=== PATIENT | female | born 1985 | race Two or more races ===

== ENCOUNTER 2016-07-31 03:32 | Inpatient (IN) | payer MEDICAID ==
[~2016-07-31] VITALS: Ht 157.5 cm; Wt 76.1 kg
[2016-07-31 03:47] VITALS: Ht 157.5 cm; Wt 76.1 kg
[2016-07-31 03:48] VITALS: BP 112/63; PULSE 68; RESP 18
[2016-07-31] MEDS ORDERED: LACTATED RINGER'S 1,000 ML IV SCH (03:58)
[2016-07-31] MEDS ORDERED: AMPICILLIN 2 GM/NS (PMX) 100 ML IV ONE (04:00)
[2016-07-31] MEDS ORDERED: BUTORPHANOL 2 MG INJ IV PRN ×2 (04:00)
[2016-07-31] MEDS ORDERED: METHYLERGONOVINE 0.2 MG INJ IM PRN (04:00)
[2016-07-31] MEDS ORDERED: CARBOPROST 250 MCG INJ IM PRN (04:00)
[2016-07-31] MEDS ORDERED: IBUPROFEN 600 MG TAB PO PRN (04:00)
[2016-07-31] MEDS ORDERED: OXYTOCIN 30 UNITS/LR 500 ML IV SCH ×2 (04:00)
[2016-07-31] MEDS ORDERED: MISOPROSTOL 200 MCG TAB PR PRN (04:00)
[2016-07-31] MEDS ORDERED: ACETAMINOPHEN/CODEINE #3 TAB PO PRN ×3 (04:00→10:30)
[2016-07-31] MEDS ORDERED: OXYTOCIN 30 UNITS/LR 500 ML IV PRN (04:00)
[2016-07-31] MEDS ORDERED: PREN-93 PO (04:04)
[2016-07-31] MEDS ORDERED: LACTATED RINGER'S 1,000 ML IV PRN (04:07)
--- NOTE | 2016-07-31 04:46 | HP ---
Date/Time of Note Date/Time of Note DATE: 07/31/16 TIME: 04:39 OB - History Hx of Present Free Text/Dictation 31 yo P1 @ 38+ wks, presents in active labor, 4cm. +Ctx, no VB, no LOF Chief Complaint: ctx Last Menstrual Period: Oct 13, 2015 Estimated Due Date: Aug 10, 2016 : 2 Para: 1 Care: Good Care Obstetrical Complications: None, Other Medical Complications: None Other Concerns: Level II sono showed marginal insertion of umbilical cord near edge of placenta Past Family/Social History * Past Medical, Surgical, Family and Obstetric Histories reviewed from chart. Blood Type: O+ Rubella: immune RPR/VDRL: Negative GBS Status: Negative HBsAG: Negative OB Admission Exam Vital Signs Vital Signs Vital Signs Date Time Temp Pulse Resp B/P Pulse Ox O2 Delivery O2 Flow Rate FiO2 07/31/16 03:48 98.9 68 18 112/63 Room Air Physical Exam HEENT: WNL Abdomen: WNL Cervical Dilatation: 4cm Effacement: 75% Station: -3 Membranes: Intact Heart Rate: 130's Accelerations: Accelerations Present Decelerations: No Decelerations Varibility: Moderate Contractions on Admission: < 5 Minutes Apart Intensity: Moderate OB Assessment/Plan Other Assessment: 31 yo P1 @ 38+ wks, in active labor - reassuring status - gbs neg Plan: Expectant Management Other plan: Admit to labor and delivery Anticipate ALLISON ASTUDILLO MD Jul 31, 2016 04:45
[2016-07-31 06:04] LABS: ADD SCAN DIFF NO
[2016-07-31 06:10] LABS: BASOPHILS % 0.2 % (0.0-2.0); EOSINOPHILS # 0.1 10^3/ul (0.0-0.5); EOSINOPHILS % 0.7 % (0.0-7.0); HEMATOCRIT 41.4 % (37.0-47.0); HEMOGLOBIN 13.6 g/dl (12.0-16.0); LYMPHOCYTES # 1.3 10^3/ul (0.8-2.9); LYMPHOCYTES % 15.3 % (15.0-51.0); MEAN CORPUSCULAR HEMOGLOBIN 29.4 pg (29.0-33.0); MEAN CORPUSCULAR HGB CONC 32.9 g/dl (32.0-37.0); MEAN CORPUSCULAR VOLUME 89.4 fl (82.0-101.0); MEAN PLATELET VOLUME 12.7 fl (7.4-10.4); MONOCYTE # 0.5 10^3/ul (0.3-0.9); MONOCYTES % 5.4 % (0.0-11.0); NEUTROPHIL # 6.5 10^3/ul (1.6-7.5); NEUTROPHILS % 77.9 % (39.0-77.0); PLATELET COUNT 172 10^3/UL (140-415); RED BLOOD COUNT 4.63 10^6/ul (4.20-5.40); RED CELL DISTRIBUTION WIDTH 14.6 % (11.5-14.5); WHITE BLOOD COUNT 8.3 10^3/ul (4.8-10.8)
[2016-07-31 06:33] LABS: ALANINE AMINOTRANSFERASE 39 IU/L (13-69); ALBUMIN 3.7 g/dl (3.3-4.9); ALBUMIN/GLOBULIN RATIO 1.12; ALKALINE PHOSPHATASE 213 IU/L (42-121); ANION GAP 13 (8-16); ASPARTATE AMINO TRANSFERASE 28 IU/L (15-46); BILIRUBIN,INDIRECT 0.2 mg/dl (0-1.1); BILIRUBIN,TOTAL 0.2 mg/dl (0.2-1.3); BLOOD UREA NITROGEN 8 mg/dl (7-20); CALCIUM 8.9 mg/dl (8.4-10.2); CARBON DIOXIDE 21 mmol/L (21-31); CHLORIDE 110 mmol/L (97-110); CREATININE 0.49 mg/dl (0.44-1.00); GLUCOSE 108 mg/dl (70-220); SODIUM 140 mmol/L (135-144)
[2016-07-31 06:34] LABS: INR 0.89; PT RATIO 0.9
[2016-07-31 06:42] LABS: PARTIAL THROMBOPLASTIN TIME 26.4 Sec (25.0-35.0)
--- NOTE | 2016-07-31 06:52 | RADRPT ---
PROCEDURE: Obstetrical ultrasound, limited. CLINICAL INDICATION: Pelvic pain. TECHNIQUE: Multiple sonographic images of the pelvis were obtained using transabdominal technique . Images were obtained with felix scale and color Doppler. The images were reviewed on a PACS works tation. COMPARISON: No prior studies are available for comparison. FINDINGS: There is a single living intrauterine gestation with the fetus in a vertex presentation. hear t tones of 146 beats per minute are identified. The placenta is posterior in location, grade 2. IMPRESSION: Single viable intrauterine gestation. Vertex presentation. .Geoffrey Cedeno MD, MD Date Time Electronically viewed and signed by .Geoffrey Cedeno MD, MD on 07/31/2016 06:52 .T/
--- NOTE | 2016-07-31 07:41 | TRIAGE ---
OB Triage Datetime Report Generated by CPN: 07/31/2016 07:41 Datetime: 07/31/2016 07:00 Labor Evaluation Frequency: IRREGULAR Monitor Mode: External Duration (sec)2399: 60-120 Quality: Mild Pattern: Normal: <= 5 Contractions in 10 Minutes Resting Tone Caspian: Relaxed Heart Rate FHR Baseline Rate: 120 Monitor Mode: External US FHR Baseline Changes: No Baseline Change Variability: Moderate 6-25 bpm Accelerations: 10X10 Decelerations: Variable Category: Category I Datetime: 07/31/2016 06:50 FHR Baseline Changes: No Baseline Change Datetime: 07/31/2016 06:32 Stage of : Labor (Annotations: CALLED DR HOOD, MD RESPOND [facility] TO [facility]. ) Datetime: 07/31/2016 06:29 Stage of : Labor Datetime: 07/31/2016 06:16 Vaginal Exam Dilatation (cms): 10.0 Effacement (%): 100 Station: -2 Exam By: Kristian CANNON RN Vaginal Bleeding: Scant Cervix, Consistency: Firm Cervix, Position: Posterior Presentation 'A': Cephalic Datetime: 07/31/2016 05:57 Membranes Ruptured Date/Time: 07/31/2016 07:16 Membranes Rupture Method: Artificial Amniotic Fluid Color: Clear Amniotic Fluid Amount: Small Amniotic Fluid Odor: None Datetime: 07/31/2016 05:36 Vaginal Exam Dilatation (cms): 5.0 Effacement (%): 90 Station: -3 Exam By: ABRAN ARREDONDO Vaginal Bleeding: None Cervix, Consistency: Firm Cervix, Position: Posterior Datetime: 07/31/2016 05:18 Labor Evaluation Frequency: IRREGULAR Monitor Mode: External Duration (sec)2399: 60-120 Quality: Mild Pattern: Normal: <= 5 Contractions in 10 Minutes Resting Tone Caspian: Relaxed Heart Rate FHR Baseline Rate: 145 Monitor Mode: External US FHR Baseline Changes: No Baseline Change Variability: Moderate 6-25 bpm Accelerations: 15X15 Decelerations: None Category: Category I Datetime: 07/31/2016 05:00 Labor Evaluation Frequency: IRREGULAR Monitor Mode: External Duration (sec)2399: 90-120 Quality: Mild Pattern: Normal: <= 5 Contractions in 10 Minutes Resting Tone Caspian: Relaxed Heart Rate FHR Baseline Rate: 145 Monitor Mode: External US FHR Baseline Changes: No Baseline Change Variability: Moderate 6-25 bpm Accelerations: 15X15 Decelerations: None Category: Category I Datetime: 07/31/2016 04:00 Labor Evaluation Frequency: 2 Monitor Mode: External Duration (sec)2399: 90-150 Quality: Mild Pattern: Normal: <= 5 Contractions in 10 Minutes Resting Tone Caspian: Relaxed Heart Rate FHR Baseline Rate: 135 Monitor Mode: External US FHR Baseline Changes: No Baseline Change Variability: Moderate 6-25 bpm Accelerations: 15X15 Decelerations: None Category: Category I Datetime: 07/31/2016 03:42 Vaginal Exam Dilatation (cms): 4.0 Effacement (%): 70 Station: -3 Exam By: Kristian CANNON RN Vaginal Bleeding: None Cervix, Consistency: Firm Cervix, Position: Posterior Presentation 'A': Cephalic Datetime: 07/31/2016 03:40 Stage of : OB Triage Time of Arrival: 07/31/2016 03:40 EGA: 38.4 Arrived By: Wheelchair Arrived From: Home Chief Complaint: CONTRACTIONS Movement: Present Contractions: Denies/Absent Rupture of Membranes: Denies Vaginal Bleeding: None Vaginal Discharge: Denies Recent Sexual Intercouse: Denies Abdominal Trauma: Not Applicable Patient Complaints: None Time Provider Notified: 07/31/2016 03:30 Provider Notified: DR BENTON Initial Plan: CALL MD Mariela Maternal Assessment Level of Consciousness: Fully Conscious DTR's/Clonus: DTRs 2+; No Clonus Headache: Denies Blurred Vision: No Respiratory Effort: Unlabored; Regular Rhythm; Equal Expansion Breath Sounds, Left: Clear and Equal Breath Sounds, Right: Clear and Equal Nausea/Vomiting: Denies RUQ Epigastric Pain: Denies Lower Extremities Edema: None Degree: None Upper Extremities Edema: None Degree: None Facial Edema: None Temperature Route: Oral Fall Risk Assessment History of Falling: (0) No Secondary Diagnosis: (0) No Ambulatory Aid: (0) Bedrest/Nurse Assist IV Therapy: (0) No Gait: (0) Normal/Bedrest/Immobile Mental Status: (0) Oriented to Own Ability Fall Score: 0 Fall Risk Score Definition: No Risk: No action required Monitor Mode: External Monitor Mode: External US Pain Assessment Pain Scale: 6 Pain Presence: Intermittent Pain Type: Contraction Pain Location: Abdomen; Back
[2016-07-31] MEDS: LIDOCAINE 1% (MPF) 30 ML INJ INJ PRN (07:42)
--- NOTE | 2016-07-31 07:45 | LDN ---
Date/Time of Note Date/Time of Note DATE: 07/31/16 TIME: 07:39 Delivery Summary Normal spontaneous vaginal delivery of a baby boy from OA position shoulders delivered without any difficulty rest of the baby's body followed placenta spontaneous expulsion inspected complete blood loss 250 cc patient sustained small first-degree laceration repaired with 3-0 chromic catgut Weeks of Gestation 38 weeks 4 days Placenta Delivered: Spontaneously Meconium: none Episiotomy: No Perineal laceration: 1 Laceration repair: First-degree perineal laceration repaired with 3-0 chromic catgut Anesthesia type: Local Estimated blood loss: 250 Sponge & Needle done & correct: Yes All needle counts correct: Yes Any foreign bodies felt in the: No Problems: Infant Delivery Information Sex Sex: male Apgars 1 Minute: 9 5 Minute: 9 Suctioning Nose & mouth suctioned at terrence: Yes Delee suction performed: Yes Umbilical Cord Umbilical cord with: 3 Vessels Cord presentations: no nuchal cord Cord Blood was obtained: Yes DENIZ ALBERTO MD Jul 31, 2016 07:45
[2016-07-31] MEDS ORDERED: AMPICILLIN 1 GM/NS (PMX) 50 ML IV SCH (08:00)
[2016-07-31 10:00] VITALS: BP 110/64; PULSE 70; RESP 18
[2016-07-31] MEDS ORDERED: BENZOCAINE 20% 56 ML SPRAY TOP PRN (10:30)
[2016-07-31] MEDS ORDERED: OXYCODONE/ASPIRIN (4.88/325) TAB PO PRN ×2 (10:30)
[2016-07-31] MEDS ORDERED: WITCH HAZEL/GLYCERIN PAD PR PRN (10:30)
[2016-07-31] MEDS ORDERED: ONDANSETRON 4 MG INJ IV PRN (10:30)
[2016-07-31] MEDS ORDERED: ACETAMINOPHEN 325 MG TAB PO PRN (10:30)
[2016-07-31] MEDS ORDERED: DIBUCAINE 1% 30 GM OINT PR PRN (10:30)
[2016-07-31] MEDS ORDERED: LANOLIN 7 GM TUBE TOP PRN (10:30)
[2016-07-31] MEDS: IBUPROFEN 600 MG TAB PO SCH ×3 (11:39→23:33)
[2016-07-31] MEDS: OXYTOCIN 30 UNITS/LR 500 ML IV SCH ×2 (11:41→14:01)
[2016-07-31 15:46] VITALS: BP 111/60; PULSE 86; RESP 18
[2016-07-31 19:40] VITALS: BP 100/57; PULSE 86; RESP 18
[2016-07-31] MEDS: SENNA/DOCUSATE NA (8.6MG/50MG) TAB PO SCH (21:50)
[2016-07-31 23:40] VITALS: BP 112/62; PULSE 78; RESP 18
[2016-08-01 03:50] VITALS: BP 94/52; PULSE 70; RESP 18
[2016-08-01] MEDS: IBUPROFEN 600 MG TAB PO SCH ×4 (05:34→23:35)
[2016-08-01 07:31] LABS: ADD SCAN DIFF NO
[2016-08-01 07:34] LABS: BASOPHILS % 0.3 % (0.0-2.0); EOSINOPHILS # 0.1 10^3/ul (0.0-0.5); EOSINOPHILS % 0.9 % (0.0-7.0); HEMOGLOBIN 10.9 g/dl (12.0-16.0); LYMPHOCYTES # 2.2 10^3/ul (0.8-2.9); LYMPHOCYTES % 19.3 % (15.0-51.0); MEAN CORPUSCULAR HEMOGLOBIN 30.4 pg (29.0-33.0); MEAN CORPUSCULAR VOLUME 91.9 fl (82.0-101.0); MEAN PLATELET VOLUME 12.4 fl (7.4-10.4); MONOCYTE # 0.7 10^3/ul (0.3-0.9); MONOCYTES % 6.1 % (0.0-11.0); NEUTROPHIL # 8.4 10^3/ul (1.6-7.5); NEUTROPHILS % 72.4 % (39.0-77.0); PLATELET COUNT 160 10^3/UL (140-415); RED BLOOD COUNT 3.59 10^6/ul (4.20-5.40); RED CELL DISTRIBUTION WIDTH 14.9 % (11.5-14.5); WHITE BLOOD COUNT 11.6 10^3/ul (4.8-10.8)
[2016-08-01 08:00] VITALS: BP 103/60; PULSE 97; RESP 19
[2016-08-01] MEDS: SENNA/DOCUSATE NA (8.6MG/50MG) TAB PO SCH ×2 (09:00→20:25)
--- NOTE | 2016-08-01 10:13 | PN ---
Date/Time of Note Date/Time of Note DATE: 08/01/16 TIME: 10:12 OB Subjective Subjective Subjective Post normal vaginal delivery day 1 Afebrile vital signs stable abdomen soft uterus firm lochia moderate extremity normal ambulation encouraged Laboratory Tests Test 08/01/16 06:45 White Blood Count 11.610^3/ul Red Blood Count 3.5910^6/ul Hemoglobin 10.9g/dl Hematocrit 33.0% Mean Corpuscular Volume 91.9fl Mean Corpuscular Hemoglobin 30.4pg Mean Corpuscular Hemoglobin Concent 33.0g/dl Red Cell Distribution Width 14.9% Platelet Count 06202^3/UL Mean Platelet Volume 12.4fl Neutrophils % 72.4% Lymphocytes % 19.3% Monocytes % 6.1% Eosinophils % 0.9% Basophils % 0.3% Nucleated Red Blood Cells % 0.0/100WBC Neutrophils # 8.410^3/ul Lymphocytes # 2.210^3/ul Monocytes # 0.710^3/ul Eosinophils # 0.110^3/ul Basophils # 0.010^3/ul Nucleated Red Blood Cells # 0.010^3/ul Current Medications Medications (Trade) Dose Ordered Sig/Cornelia Route PRN Reason Start Time Stop Time Status Last Admin Dose Admin Lactated Ringer's 1,000 ml @ 125 mls/hr Q8H IV 07/31/16 03:58 07/31/16 10:07 DC 07/31/16 05:29 Ampicillin 100 ml @ 100 mls/hr ONCE ONCE IV 07/31/16 04:00 07/31/16 04:24 DC Ampicillin (Ampicillin 1 Gm/ NS (Pmx)) 50 ml @ 100 mls/hr Q4H IV 07/31/16 08:00 07/31/16 08:00 DC Butorphanol Tartrate (Stadol) 1 mg Q2H PRN IV PAIN 07/31/16 04:00 07/31/16 10:07 DC Butorphanol Tartrate (Stadol) 2 mg Q2H PRN IV PAIN 07/31/16 04:00 07/31/16 10:07 DC Lidocaine 30 ml 30 ml ONCE PRN INJ EPISIOTOMY/TEARING 07/31/16 04:00 07/31/16 10:07 DC 07/31/16 07:42 Oxytocin/Lactated Ringer's 500 ml @ 125 mls/hr ONCE -MAY REPEAT X1 IV 07/31/16 04:00 07/31/16 10:07 DC 07/31/16 07:40 Oxytocin/Lactated Ringer's 500 ml @ 125 mls/hr ONCE IV 07/31/16 04:00 07/31/16 10:07 DC Ibuprofen (Motrin) 600 mg ONCE PRN PO Mild Pain (Pain Score 1-3) 07/31/16 04:00 07/31/16 10:07 DC Acetaminophen/ Codeine Phosphate 2 tab 2 tab ONCE PRN PO Moderate to Severe Pain (4-10) 07/31/16 04:00 07/31/16 10:07 DC Lactated Ringer's 1,000 ml @ 2,000 mls/hr Q30M PRN IV PRE-EPIDURAL BOLUS 07/31/16 04:07 07/31/16 10:07 DC Oxytocin/Lactated Ringer's 500 ml @ 0 mls/hr ONCE PRN IV For Hemorrhage Management 07/31/16 04:00 07/31/16 10:07 DC 07/31/16 07:28 Methylergonovine Maleate (Methergine) 0.2 mg ONCE PRN IM VAGINAL BLEEDING 07/31/16 04:00 07/31/16 10:07 DC 07/31/16 09:12 Carboprost Tromethamine (Hemabate) 250 mcg ONCE PRN IM VAGINAL BLEEDING 07/31/16 04:00 07/31/16 10:07 DC Misoprostol 1000 mcg 1,000 mcg ONCE PRN [place] VAGINAL BLEEDING 07/31/16 04:00 07/31/16 10:07 DC Oxytocin/Lactated Ringer's 500 ml @ 125 mls/hr Q4H IV 07/31/16 10:01 07/31/16 15:50 DC 07/31/16 11:41 Ibuprofen (Motrin) 600 mg Q6 PO 07/31/16 12:00 08/01/16 05:34 Acetaminophen (Tylenol Tab) 650 mg Q4H PRN PO PAIN LEVEL 1-5 07/31/16 10:30 Acetaminophen/ Codeine Phosphate (Tylenol No.3) 1 tab Q4H PRN PO PAIN LEVEL 1-5 07/31/16 10:30 Acetaminophen/ Codeine Phosphate (Tylenol No.3) 2 tab Q4H PRN PO PAIN LEVEL 6-10 07/31/16 10:30 Oxycodone/Aspirin (Percodan) 1 tab Q3H PRN PO PAIN LEVEL 1-5 07/31/16 10:30 Oxycodone/Aspirin (Percodan) 2 tab Q3H PRN PO PAIN LEVEL 6-10 07/31/16 10:30 Ondansetron HCl (Zofran Inj) 4 mg Q6H PRN IV NAUSEA AND/OR VOMITING 07/31/16 10:30 Senna/Docusate Sodium (Senokot-S) 1 tab BID PO 07/31/16 21:00 07/31/16 21:50 Witch Calli/ Glycerin (Tucks Pads) 1 pad BEDSIDE MEDICATION PRN [place] HEMORRHOID/EPISIOTMY PAIN 07/31/16 10:30 07/31/16 11:38 Benzocaine (Dermoplast [place]) 1 spray BEDSIDE MEDICATION PRN TOP HEMORRHOID/EPISIOTMY PAIN 07/31/16 10:30 07/31/16 11:38 Dibucaine (Nupercainal) 1 applic BEDSIDE MEDICATION PRN [place] HEMORRHOID/EPISIOTMY PAIN 07/31/16 10:30 Lanolin (Mis-D-Wwtkrd) 1 applic BEDSIDE MEDICATION PRN TOP BEDSIDE FOR SHAI TO NIPPLES 07/31/16 10:30 07/31/16 11:39 Measles/Mumps/ Rubella Vaccine Live (Mmr Ii Vaccine) 0.5 ml ONCE ONCE SC* 08/02/16 09:00 08/02/16 09:01 DENIZ ALBERTO MD Aug 01, 2016 10:13
[2016-08-01 16:00] VITALS: BP 112/60; PULSE 68; RESP 19
[2016-08-01 20:00] VITALS: BP 98/50; PULSE 82; RESP 18
[2016-08-02 04:15] VITALS: BP 95/54; PULSE 85; RESP 17
[2016-08-02] MEDS: IBUPROFEN 600 MG TAB PO SCH ×2 (06:05→11:36)
[2016-08-02 07:40] VITALS: BP 108/65; PULSE 89; RESP 19
[2016-08-02] MEDS ORDERED: MEASLES,MUMPS,RUBELLA VACCINE INJ SC* ONE (09:00)
[2016-08-02] MEDS: SENNA/DOCUSATE NA (8.6MG/50MG) TAB PO SCH (09:21)
--- NOTE | 2016-08-02 10:40 | DS ---
Date/Time of Note Date/Time of Note DATE: 08/02/16 TIME: 10:39 Discharge Summary Admission/Discharge Info Admit Date/Time Jul 31, 2016 at 05:38 Discharge Date/Time August 02, 2016 at 1030 Final Diagnosis Post normal vaginal delivery Patient Condition: Good Procedures Normal vaginal delivery Hx of Present Illness Term normal vaginal delivery Hospital Course Satisfactory uneventful Home Meds Reported Medications Vit No.124/Iron/FA ( Vitamin Tablet) 1 Each Tablet, 1 EACH PO, TAB 07/31/16 Follow-up Plan Appointment clinic in 2 weeks for check Primary Care Provider Care Physician No Primary Time spent on discharge: < 30 minutes DENIZ ALBERTO MD Aug 02, 2016 10:40
[2016-08-02 13:58] LABS: RUBELLA ANTIBODY - IGG 4.72 index
== END 2016-08-02 13:30 | disposition home or self-care (01) | DRG 775 ==
LOC: OBT 03:32 → L-D 03:33 → OBT 05:37 → L-D 05:38 → PP1 09:58
PROVIDERS: ADMIT Obstetrics & Gynecology; ATTEND Obstetrics & Gynecology
PROC: 10E0XZZ Delivery of Products of Conception, External Approach (ICD-10-PCS; principal; 2016-07-31)
PROC: 0HQ9XZZ Repair Perineum Skin, External Approach (ICD-10-PCS; 2016-07-31)
PROC: 4A1HX4Z Monitoring of Products of Conception, Cardiac Electrical Activity, External Approach (ICD-10-PCS; 2016-07-31)
DX: O70.0 First degree perineal laceration during delivery (principal); Z37.0 Single live birth; Z3A.38 38 weeks gestation of pregnancy
CPT/HCPCS: 36415; 76815; 80053; 85025; 85610; 85730; 86592; 86762; 86900; 86901; 87340; 99464; G0463; J2210; J2590; J7120